=== PATIENT | female | born 1955 | race Caucasian/White ===

== ENCOUNTER → 2017-05-12 | Day surgery (SDC) | payer OTHER ==
[2017-05-07 08:50] LABS: BASOPHILS # (AUTO) 0.1 (0.0-0.1); BASOPHILS % 0.8 % (0.0-1.0); EOSINOPHILS # (AUTO) 0.4 (0.0-0.4); EOSINOPHILS % 4.6 % (0.0-6.0); HEMATOCRIT 38.8 % (34.2-44.1); HEMOGLOBIN 12.6 g/dL (12.0-16.0); LYMPHOCYTES # (AUTO) 2.7 (1.0-3.2); LYMPHOCYTES % 35.1 % (18.0-39.1); MEAN CORPUSCULAR HGB CONC 32.5 g/dL (31-35); MEAN CORPUSCULAR VOLUME 86.2 fL (81-99); MONOCYTES # (AUTO) 0.7 (0.2-0.8); NEUTROPHILS # (AUTO) 3.9 (2.1-6.9); NEUTROPHILS % 50.2 % (38.7-80.0); PLATELET COUNT 247 x10e3/uL (140-360); RED CELL DISTRIBUTION WIDTH 13.1 % (11.7-14.4)
[2017-05-07 08:51] LABS: BILIRUBIN,URINE NEGATIVE (NEGATIVE); CLARITY,URINE CLEAR (CLEAR); COLOR,URINE YELLOW (YELLOW); KETONES,URINE NEGATIVE (NEGATIVE); LEUKOCYTE ESTERASE ,URINE TRACE (NEGATIVE); NITRITE,URINE NEGATIVE (NEGATIVE); PROTEIN,URINE DIPSTICK NEGATIVE (NEGATIVE); URINE UROBILINOGEN 0.2 mg/dL (0.2 - 1)
[2017-05-07 09:07] LABS: ALANINE AMINOTRANSFERASE 25 IU/L (0-55); ALKALINE PHOSPHATASE 72 IU/L (40-150); ANION GAP 9.8 mmol/L (8-16); BLOOD UREA NITROGEN 15 mg/dL (7-26); BUN/CREATININE RATIO 23 (6-25); CALCIUM 9.5 mg/dL (8.4-10.2); CARBON DIOXIDE 31 mmol/L (22-29); CHLORIDE 102 mmol/L (98-107); CREATININE, SERUM 0.65 mg/dL (0.57-1.11); EST GLOMERULAR FILTRATION RATE > 60 ML/MIN (60-); GLUCOSE 157 mg/dL (74-118); POTASSIUM 3.8 mmol/L (3.5-5.1); SODIUM 139 mmol/L (136-145)
[~2017-05-12] MED LIST: ALBUTEROL0.63 MG/3; BUPIVACAINE 0.25%/EPI 30ML SDV INJ ONE; DEXAMETHASONE SOD PHOS INJ 4 MG/ML VIAL ONE; FENTANYL CITRATE/PF 100MCG/2 ML INJ ONE; KETOROLAC TROMETHAMINE 30 MG/ML VIAL ONE; LIDOCAINE HCL 2% LOCAL INJ 5 ML SDV VIAL INJ ONE; MELOXICAM7.5 MG PO; METFORMIN HCL500 MG PO; MIDAZOLAM HCL 2 MG/2 ML VIAL ONE; ONDANSETRON HCL INJ 2 MG/ML VIAL ONE; PROPOFOL IV EMULSION 10 MG/ML 20 ML VIAL ONE; ROCURONIUM BROMIDE 10 MG/ML 5ML VIAL ONE; SEVOFLURANE INHAL SOLN 250 ML PEN BTL ONE; SYMBICORT 16010.2 GM IH
--- OUTSIDE RECORDS SUMMARY | 2017-05-12 07:12 | XMS REPORT | Clinical Summary ---
Author Author [facility] Address Unknown Phone Unavailable Care Team Providers Care Student Specialist Name Role Phone Gretchen Sinha MD PCP Allergies Active Allergy Reactions Severity Noted Date Comments Amoxicillin 06/18/2015 Food Extracts 06/18/2015 sprite Hydrocodone-Acetaminophen 06/18/2015 Current Medications Prescription Sig. Disp. Refills Start End Date Status Date PROAIR HFA 90 INHALE 2 PUFFS BY MOUTH 3 3 05/30/19 Active mcg/actuation inhaler TIMES A DAY 16 glimepiride (AMARYL) 2 MG Take 2 mg by mouth 2 1 05/30/19 Active tablet (two) times a day. 16 metFORMIN (GLUCOPHAGE) TAKE 2 TABLETS BY MOUTH 1 05/30/19 Active 500 MG tablet TWICE A DAY DIRECTED 16 ondansetron ODT DIS ONE T PO BID UTD 0 04/28/19 Active (ZOFRAN-ODT) 4 MG 16 disintegrating tablet qxrjnpf-zxuktvjeirsxy-sem Take 1 tablet by mouth Active feine (EXCEDRIN MIGRAINE) every 6 (six) hours as 250-250-65 mg per tablet needed for headaches. Active Problems Not on file Family History Medical History Relation Name Comments Heart disease Father Diabetes Mother No Known Problems Sister Relation Name Status Comments Father Mother Sister Alive Social History Tobacco Use Types Packs/Day Years Used Date Former Smoker Quit: 02/22/1974 Comments: smoking on and off for 15-20 years Alcohol Use Drinks/Week oz/Week Comments No Sex Assigned at Date Recorded Not on file Last Filed Vital Signs Not on file Plan of Treatment Health Maintenance Due Date Last Done Comments PAP SMEAR 1974 COLONOSCOPY 2003 ZOSTER VACCINE 2013 INFLUENZA VACCINE 09/22/2016 MAMMOGRAM 06/25/2017 06/26/2015 Results Not on fileafter 05/11/2016 Insurance Payer Benefit Subscriber ID Type Phone Address Plan / Group C[employer] CIGNA OPEN xxxxxxxxxxx HMO ACCESS/NET WORK Home: [id number] [place] [id number]
--- OUTSIDE RECORDS SUMMARY | 2017-05-12 07:12 | XMS REPORT | Summary of Care ---
Author Author Yomaira Adkins LVN Organization Unknown Address [facility] Phone Unavailable Care Team Providers Care Delivery Manager Name Role Phone KYAW MOJICA M.D. Unavailable Unavailable Yomaira Adkins LVN Unavailable Unavailable GALINA JAMES [place], KYAW [place] Unavailable Unavailable Unavailable Unavailable Functional Status Name Dates Details Functional status health issues are not documented Status: Name Dates Details Cognitive status health issues are not documented Status: Problems Name Dates Details Asthma (493.90, J45.909) Status: Active Gastritis (535.50, K29.70) Status: Active Hepatitis (573.3, K75.9) Status: Active Chronic sinusitis (473.9, J32.9) Status: Active Sinus pain (478.19, J34.89) Status: Active Migraine headache (346.90, G43.909) Status: Active SANTY positive (795.79, R76.8) Status: Active Elevated blood pressure reading (796.2, R03.0) Status: Active Pain of right upper extremity (729.5, M79.601) Status: Active Claudication of upper extremity (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.9, I73.9) Status: Active Diabetes (250.00, E11.9) Status: Active Benign hypertension (401.1, I10) Status: Active Cervical radiculopathy (723.4, M54.12) Status: Active Colicky RUQ abdominal pain (789.01, R10.11) Status: Active Flu-like symptoms (780.99, R68.89) Status: Active Gallstone (574.20, K80.20) Status: Active Fatty liver (571.8, K76.0) Status: Active Seasonal allergies (477.9, J30.2) Status: Active Medications Name Dates Details Glucophage 1000 MG Oral Tablet TAKE 2 TABLET TWICE DAILY Active Symbicort 160-4.5 MCG/ACT Inhalation Aerosol INHALE 1 PUFFS TWICE DAILY * Refills: 0 Active 6 GM Inhaler ProAir HFA 108 (90 Base) MCG/ACT Inhalation Aerosol Solution INHALE 1 TO 2 PUFFS EVERY 4 TO 6 HOURS NEEDED. * Refills: 0 * Start : 11-Feb-2017 Active 8.5 GM Inhaler OneTouch Delmike Lancets 33G For glucose testing once daily. * Quantity: 1 Refills: 1 GALINA M.D., KYAW * Start : 18-Feb-2017 Active 100 Unit Box OneTouch Verio In Vitro Strip Check sugars once- twice daily at various times including both pre and 2 hrs post meals. * Quantity: 1 Refills: 2 GAILNA M.D., KYAW * Start : 18-Feb-2017 Active 50 Strip Box Lisinopril 10 MG Oral Tablet TAKE 1 TABLET DAILY DIRECTED. * Quantity: 90 Refills: 0 GALINA M.D., KYAW * Start : 02-Apr-2017 Active Meloxicam 15 MG Oral Tablet TAKE 1 TABLET BY MOUTH TWICE DAILY WITH FOOD PRN PAIN. * Quantity: 60 Refills: 0 GALINA M.D., KYAW * Start : 03-May-2017 Active Allergies and Adverse Reactions Name Dates Details Amoxicillin TABS (Allergy) Status: Active Vicodin TABS (Allergy) Status: Active Vitamin D (Allergy) Reaction: Rash Status: Active Past Medical History Name Dates Details History of Anxiety and depression (300.00, F41.8) Status: Resolved History of diabetes mellitus (V12.29, Z86.39) Status: Resolved History of gastroesophageal reflux (GERD) (V12.79, Z87.19) Status: Resolved History of 3 Status: Resolved History of liver cancer (V10.07, Z85.05) Status: Resolved Personal history of asthma (V12.69, Z87.09) Status: Resolved Procedures Procedure Dates Details History of laparoscopy Completed History of low anterior resection Completed History of appendectomy Completed History of colonoscopy Completed Immunization Name Dates Details Immunizations not documented Family History Name Dates Details Family history of asthma (V17.5, Z82.5) Status: Active Family history of diabetes mellitus (V18.0, Z83.3) Status: Active Family history of cardiac disorder (V17.49, Z82.49) Status: Active Name Dates Details Family history of alcoholism (V17.0, Z81.1) Status: Active Family history of rheumatic heart disease (V17.49, Z82.49) Status: Active Family history of diabetes mellitus (V18.0, Z83.3) Status: Active Family history of cardiac disorder (V17.49, Z82.49) Status: Active Social History Name Dates Details Unknown if ever smoked Vital Signs Date Test Result Details [id number] BP Systolic 161 mm[Hg] Status: Comments: Location: LUE; Position: Sitting BP Diastolic 85 mm[Hg] Status: Comments: Location: LUE; Position: Sitting Height 60 in Status: Weight 152.3125 lb Status: Body Mass Index Calculated 29.75 kg/m2 Status: Body Surface Area Calculated 1.66 m2 Status: Temperature 98.7 f Status: Comments: Method: Oral Heart Rate 81 /min Status: [id number] BP Systolic 138 mm[Hg] Status: Comments: Location: LUE; Position: Sitting BP Diastolic 82 mm[Hg] Status: Comments: Location: LUE; Position: Sitting Height 60 in Status: Weight 150.3125 lb Status: Body Mass Index Calculated 29.36 kg/m2 Status: Body Surface Area Calculated 1.65 m2 Status: Temperature 98.1 f Status: Comments: Method: Oral Heart Rate 84 /min Status: Respiration Rate 16 /min Status: Results Date Description Value Details [id number] US Abdomen RUQ [id number] Abdomen RUQ US SEE NOTES Comments: EXAM: US RIGHT UPPER QUADRANTDATE: 7:55 AM CSTINDICATION: - R10.11 Right upper quadrant pain the past one month withnauseaADDITIONAL INFORMATION: None.COMPARISON: None.TECHNIQUE: Multiplanar grayscale and color Doppler ultrasound images of theright upper quadrant of the abdomen. FINDINGS:Liver: Craniocaudal length: 18.3 cm. Enlarged. Echogenicity: Increased. Surface nodularity: None Mass (size and location): None.Portal vein: 12 mm with hepatopetal flow.Bile ducts: Common bile duct diameter: 5 mm. Normal. Intrahepatic ducts: Normal.Gallbladder: Gallstones: Multiple mobile hyperechoic posteriorly acoustically shadowinggallstones. Gallbladder sludge: None. Gallbladder wall: 1.9 mm. Normal. Pericholecystic fluid: None. Sonographic Neville sign: Absent.Pancreas : No abnormalities of the visualized portions of the pancreas are seen.Portions of the pancreatic head and tail are obscured by overlying bowel gas. The pancreatic duct is partially visualized measuring 2.6 mm in maximaldiameter along its course in the main body, within normal limitsRight kidney: Size: 11.4 x 4.3 x 5.3 cm. Normal. Hydronephrosis: None Echogenicity: Normal. Mass/Stone/Cyst (size and location): None.Abdominal aorta and IVC: Visualized portions are normal.Ascites: NonePleural effusion: None.IMPRESSION:1. Cholelithiasis with no sonographic evidence of acute cholecystitis.2. Nonspecific hepatomegaly and increased liver echogenicity, findings mostcompatible with diffuse fatty infiltration (steatosis) of the liver.--Read by: Jaren Lira MDDictated Date/time: 04/14/17 08: 27Electronically Signed by: Jaren Lira MD 8:30FINAL REPORT [id number] Tobacco Use Screening Completed DONE Plan of Care Name Dates Details Planned Observations Planned Goals not documented Instructions Name Dates Details Instructions not documented Encounters Appointment; KYAW MOJICA M.D. Encounter Diagnosis: Problem not documented On: 19-Jan-2017 9:30 Appointment; KYAW MOJICA M.D. Encounter Diagnosis: Problem not documented On: 28-Jan-2017 10:45 Appointment; YUNG THOMAS M.D. Encounter Diagnosis: Problem not documented On: 11-Feb-2017 8:00 Appointment; YENI MARIO RD Encounter Diagnosis: Problem not documented On: 18-Feb-2017 8:00 Appointment; KYAW MOJICA M.D. Encounter Diagnosis: Problem not documented On: 04-Mar-2017 9:45 Appointment; KYAW MOJICA M.D. Encounter Diagnosis: Problem not documented On: 05-Apr-2017 10:00 Appointment; LORI BRAGG D.O. Encounter Diagnosis: Problem not documented On: 23-Apr-2017 10:00
--- NOTE | 2017-05-12 14:09 | Operative Report ---
DATE OF PROCEDURE: May 12, 2017 PREOPERATIVE DIAGNOSIS: Cholecystitis and cholelithiasis. POSTOPERATIVE DIAGNOSIS: Cholecystitis and cholelithiasis. OPERATION PERFORMED: Laparoscopic cholecystectomy. ASSISTANTS: Dr. Vel Burnett and JAKE Thompson. ANESTHESIA: General. COMPLICATIONS: None. ESTIMATED BLOOD LOSS: Minimal. DESCRIPTION OF PROCEDURE: With the patient lying in bed in the supine position, under good general endotracheal anesthesia, the abdomen was prepped with Betadine solution and draped in the usual manner. Veress needle was introduced into the umbilicus, and pneumoperitoneum was established without any difficulty. An 11-mm trocar was placed into the umbilicus, and a 10-mm video laparoscope was placed into the intraabdominal cavity. Under direct vision, three 5-mm trocars were placed in the right subcostal region. Video laparoscopy at this point revealed a gallbladder that had adhesions to the lower half. Otherwise, the rest of the abdominal exploration was within normal limits. The peritoneum overlying the neck of the gallbladder was then opened, and all of the adhesions were taken down without any difficulty. The cystic duct was then identified and followed to its junction with the common duct. The cystic duct was then circumferentially dissected away from the common duct, doubly clipped and divided. The cystic artery was similarly doubly clipped and divided. The gallbladder was then slowly and carefully taken off the liver bed using the cautery. Perfect hemostasis was ascertained. The gallbladder was grasped through the umbilical port and removed without any difficulty. Video laparoscopy was then performed, and the liver bed was found to perfectly dry. All of the excess fluid was aspirated. The pneumoperitoneum was evacuated, and all the trocars were removed under direct vision. The midline fascia at the umbilicus was then closed with a ynkeol-lu-hrwho of #0 Vicryl. All layers were infiltrated on the way out with solution of 1/4 percent Marcaine. Subcutaneous tissue was approximated with 3-0 Vicryl, and the skin was closed with subcuticular 5-0 Vicryl. Benzoin, Steri-Strips and Band-Aids were applied. The sponge, lap and needle count was correct. The patient tolerated the procedure well and returned to the recovery room in stable condition. Job#: [id number]
== END | disposition home or self-care (01) ==
LOC: OR 07:10
PROVIDERS: ATTEND Surgery
DX: K80.10 Calculus of gallbladder with chronic cholecystitis without obstruction (principal); K82.8 Other specified diseases of gallbladder; E11.9 Type 2 diabetes mellitus without complications; J45.909 Unspecified asthma, uncomplicated; F32.9 Major depressive disorder, single episode, unspecified; Z01.810 Encounter for preprocedural cardiovascular examination; Z01.812 Encounter for preprocedural laboratory examination
CPT/HCPCS: 36415 ×2; 47562; 80053; 81003; 82948; 85025; 88304; 93005; C1766; J1100; J1885; J2001; J2250; J2405

== ENCOUNTER 2018-11-10 12:41 | Emergency (ER) | payer MEDICARE, OTHER ==
[~2018-11-10] VITALS: Ht 152.4 cm; Wt 66.7 kg
[~2018-11-10 12:41] MED LIST changes: -BUPIVACAINE 0.25%/EPI 30ML SDV INJ ONE; -DEXAMETHASONE SOD PHOS INJ 4 MG/ML VIAL ONE; -FENTANYL CITRATE/PF 100MCG/2 ML INJ ONE; -KETOROLAC TROMETHAMINE 30 MG/ML VIAL ONE; -LIDOCAINE HCL 2% LOCAL INJ 5 ML SDV VIAL INJ ONE; -MIDAZOLAM HCL 2 MG/2 ML VIAL ONE; -ONDANSETRON HCL INJ 2 MG/ML VIAL ONE; -PROPOFOL IV EMULSION 10 MG/ML 20 ML VIAL ONE; -ROCURONIUM BROMIDE 10 MG/ML 5ML VIAL ONE; -SEVOFLURANE INHAL SOLN 250 ML PEN BTL ONE
--- OUTSIDE RECORDS SUMMARY | 2018-11-10 12:45 | XMS REPORT ---
[facility] Address Unknown Phone Unavailable Care Team Providers Care Specialty Cook Name Role Phone Unavailable Unavailable Payers Payer Name Policy Type Policy Number Effective Date Expiration Date Problems This patient has no known problems. Allergies, Adverse Reactions, Alerts Allergy Name Allergy Type Status Severity Reaction(s) Onset Date Inactive Date Treating Clinician Comments SPRITE DA Active SV 2018-10-09 00:00:00 Sulfa (Sulfonamide Antibiotics) DA Active U 2011-06-01 00:00:00 amoxicillin DA Active U 2011-06-01 00:00:00 Medications This patient has no known medications. Results Test Description Test Time Test Comments Text Results Atomic Results Result Comments - XR CHEST 2 V 2018-11-08 19:08:00 Name: KATIE PARK [facility] : 1955 Age/S:63 /F [address] [facility] Unit#:[id number] Loc: [place] [address] Phys: Dena Molina Dis Date: PHONE #: [phone] Status: REG ER FAX #: [phone] Exam Date: 11/08/2018 Reason: Right Arm Pain EXAMS: CPT CODE: [id number] XR CHEST 2 V [id number] REASON FOR EXAM: Right Arm Pain Exam Order Date: 11/08/2018 6:44 PM Ordering MTyroneDTyrone: IKER Armstrong PROCEDURE: - XR CHEST 2 V COMPARISON: 10/09/2018 FINDINGS: PA and lateral views of the chest show clear lungs without evidence of consolidation. No evidence of effusion. The heart size is within normal limits. Pulmonary vasculatures are unremarkable. The osseous structures are grossly intact. IMPRESSION: No active disease. at 1908 Reported and signed by: Dimitris Patterson M.D. CC: Dena Molina; Rodney Seth Technologist: Yasmine Messer Trnromariorpt Data: 11/08/2018 (1907) Michelle.VTL Orig Print D/T: S: 11/08/2018 (1912) PAGE 1 Signed Report - XR WRIST 3 + V RT 2018-11-08 19:08:00 Name: KATIE PARK [facility] : 1955 Age/S:63 /F [address] [facility] Unit#:[id number] Loc: [place] [address] Phys: Dena Molina Dis Date: PHONE #: [phone] Status: REG ER FAX #: [phone] Exam Date: 11/08/2018 Reason: Right Wrist Pain EXAMS: CPT CODE: [id number] XR WRIST 3 + V RT [id number] REASON FOR EXAM: Right Wrist Pain EXAM ORDER DATE: 11/08/2018 6:44 PM Ordering Sunny: IKER Armstrong PROCEDURE: - XR WRIST 3 + V RT FINDINGS: 3 views of the right wrist were obtained. The osseous structures are unremarkable in size and shape. The joint spaces are maintained. No evidence of acute fracture. The radiocarpal joint space is intact IMPRESSION: Chronic ulnar styloid process fracture. No acute findings at 1908 Reported and signed by: Dimitris Patterson M.D. CC: Dena Molina; Rodney Seth Technologist: Yasmine Messer Trnromariorpt Data: 11/08/2018 (1907) Michelle.VTL Orig Print D/T: S: 11/08/2018 (2020) PAGE 1 Signed Report - XR HAND 3 + V RT 2018-11-08 19:07:00 Name: KATIE PARK [facility] : 1955 Age/S:63 /F [address] [facility] Unit#:[id number] Loc: [place] [address] Phys: Dena Molina Dis Date: PHONE #: [phone] Status: REG ER FAX #: [phone] Exam Date: 11/08/2018 Reason: Right Hand Pain EXAMS: CPT CODE: [id number] XR HAND 3 + V RT [id number] REASON FOR EXAM: Right Hand Pain EXAM ORDER DATE: 11/08/2018 6:44 PM Ordering MHuy: IKER Armstrong PROCEDURE: - XR HAND 3 + V RT FINDINGS: 3 views of the right hand were obtained. The osseous structures are unremarkable in size and shape without from small osteophyte at the 3rd DIP. The joint spaces are maintained. No evidence of fracture. The phalanges are intact. The carpal and metacarpal bones are unremarkable. There is normal alignment of the radiocarpal joint space IMPRESSION: Degenerative changes without acute osseous abnormality at 1907 Reported and signed by: Dimitris Patterson M.D. CC: Dena Molina; Rodney Seth Technologist: Yasmine Messer Trnscrpt Data: 11/08/2018 (1906) LangVTL Orig Print D/T: S: 11/08/2018 (2013) PAGE 1 Signed Report - XR SHOULDER 2 + V RT 2018-11-08 19:06:00 Name: KATIE PARK [facility] : 1955 Age/S:63 /F [address] [facility] Unit#:[id number] Loc: [place] [address] Phys: Dena Molina Dis Date: PHONE #: [phone] Status: REG ER FAX #: [phone] Exam Date: 11/08/2018 Reason: Right Arm Pain EXAMS: CPT CODE: [id number] XR SHOULDER 2 + V RT [id number] REASON FOR EXAM: Right Arm Pain EXAM ORDER DATE: 11/08/2018 6:44 PM Ordering Sunny: IKER Armstrong PROCEDURE: - XR SHOULDER 2 + V RT FINDINGS: 3 views of the right shoulder were obtained. The osseous structures are unremarkable in size and shape. The joint spaces are maintained. There is normal alignment of the humeral head. No evidence of fracture. The acromial clavicular joint is intact IMPRESSION : Unremarkable right shoulder at 1906 Reported and signed by: Dimitris Patterson M.D. CC: Dena Molina; Rodney Seth Technologist: Yasmine Messer Trnscrpt Data: 11/08/2018 (1905) [email or web address] Orig Print D/T: S: 11/08/2018 (1911) PAGE 1 Signed Report - XR FOREARM 2 VIEWS RT 2018-11-08 19:06:00 Name: KATIE PARK [facility] : 1955 Age/S:63 /F [address] [facility] Unit#:[id number] Loc: [place] [address] Phys: Dena Molina Dis Date: PHONE #: [phone] Status: REG ER FAX #: [phone] Exam Date: 11/08/2018 Reason: Right Arm Pain EXAMS: CPT CODE: [id number] XR [place] [address] [place] [id number] REASON FOR EXAM: Right Arm Pain EXAM ORDER DATE: 11/08/2018 6:44 PM Ordering Sunny: IKER Armstrong PROCEDURE: - XR FOREARM 2 VIEWS RT FINDINGS: 2 views of the right forearm were obtained. The osseous structures are unremarkable in size and shape. The joint spaces are maintained. No evidence of fracture. IMPRESSION: Unremarkable right radius and ulna Electronically Signed by Sunny Patterson on 11/08 at 1906 Reported and signed by: Dimitris Patterson M.D. CC: Dena Molina; Rodney Seth Technologist: Yasmine Messer Trnromariorpt Data: 11/08/2018 (1905) Leni Orig Print D/T: S: 11/08/2018 (2020) PAGE 1 Signed Report - XR ELBOW 3 + V RT 2018-11-08 19:05:00 Name: KATIE PARK [facility] : 1955 Age/S:63 /F [address] [facility] Unit#:[id number] Loc: [place] [address] Phys: Dena Molina Dis Date: PHONE #: [phone] Status: REG ER FAX #: [phone] Exam Date: 11/08/2018 Reason: Right Arm Pain EXAMS: CPT CODE: [id number] XR ELBOW 3 + V RT [id number] REASON FOR EXAM: Right Arm Pain EXAM ORDER DATE: 11/08/2018 6:44 PM Ordering Sunny: IKER Armstrong PROCEDURE: - XR ELBOW 3 + V RT FINDINGS: 3 views of the right elbow were obtained. The osseous structures are unremarkable in size and shape. The joint spaces are maintained. No evidence of fracture. No evidence of joint effusion IMPRESSION: Unremarkable right elbow at 1905 Reported and signed by: Dimitris Patterson M.D. CC: Dena Molina; Rodney Seth Technologist: Yasmine Messer Trnromariot Data: 11/08/2018 (1904) Leni Orig Print D/T: S: 11/08/2018 (2017) PAGE 1 Signed Report URINALYSIS COMPLETE 2018-10-09 13:34:00 UA COLOR (test code=COLU) LIGHT YELLOW YELLOW UA APPEARANCE (test code=APPU) CLEAR CLEAR UA GLUCOSE DIPSTICK (test code=DGLUU) norm mg/dL NEGATIVE UA BILIRUBIN DIPSTICK (test code=BILU) NEGATIVE mg/dL NEGATIVE UA KETONE DIPSTICK (test code=KETU) neg mg/dL NEGATIVE UA SPECIFIC GRAVITY (test code=SGU) 1.005 1.001-1.035 UA BLOOD DIPSTICK (test code=ARMANDO) neg Cole/uL NEGATIVE UA PH DIPSTICK (test code=AMANDA) 7.0 5.0-8.0 UA PROTEIN DIPSTICK (test code=PROU) neg mg/dL Neg-15 UA UROBILINIOGEN DIPSTICK (test code=URO) norm mg/dL 0.0-0.2 UA NITRITE DIPSTICK (test code=LISA) NEGATIVE NEGATIVE UA LEUKOCYTE ESTERASE DIPSTICK (test code=LEUU) 25 Lamont/uL (Trace) uL NEGATIVE UA WBC (test code=WBCU) 2-3 per HPF 0-5 UA RBC (test code=RBCU) 0-2 per HPF 0-5 UA EPITHELIAL CELLS (test code=EPIU) FEW per HPF Few UA BACTERIA (test code=BACU) TRACE per HPF NONE Urine Source? Clean CatchURINALYSIS [id number] 13:26:00* Test Item Value Reference Range Comments UA COLOR (test code=COLU) LIGHT YELLOW YELLOW UA APPEARANCE (test code=APPU) CLEAR UA GLUCOSE DIPSTICK (test code=DGLUU) norm mg/dL NEGATIVE UA BILIRUBIN DIPSTICK (test code=BILU) NEGATIVE mg/dL NEGATIVE UA KETONE DIPSTICK (test code=KETU) neg mg/dL NEGATIVE UA SPECIFIC GRAVITY (test code=SGU) 1.005 1.001-1.035 UA BLOOD DIPSTICK (test code=ARMANDO) neg Cole/uL NEGATIVE UA PH DIPSTICK (test code=AMANDA) 7.0 5.0-8.0 UA PROTEIN DIPSTICK (test code=PROU) neg mg/dL Neg-15 UA UROBILINIOGEN DIPSTICK (test code=URO) norm mg/dL 0.0-0.2 UA NITRITE DIPSTICK (test code=LISA) NEGATIVE NEGATIVE UA LEUKOCYTE ESTERASE DIPSTICK (test code=LEUU) 25 Lamont/uL (Trace) uL NEGATIVE UA WBC (test code=WBCU) per HPF 0-5 UA RBC (test code=RBCU) per HPF 0-5 UA EPITHELIAL CELLS (test code=EPIU) per HPF Few UA BACTERIA (test code=BACU) per HPF NONE Urine Source? Clean CatchBASIC METABOLIC [id number] 13:02:00* Test Item Value Reference Range Comments SODIUM (test code=NA) 136 mmol/L 135-148 POTASSIUM (test code=K) 4.0 mmol/L 3.5-5.1 CHLORIDE (test code=CL) 99 mmol/L 101-109 CARBON DIOXIDE (test code=CO2) 26.8 mmol/L 21-32 ANION GAP (test code=GAP) 14 mmol/L 10-20 GLUCOSE (test code=GLU) 157 mg/dL 74-106 BLOOD UREA NITROGEN (test code=BUN) 15 mg/dL 3-21 GLOMERULAR FILTRATION RATE (test code=GFR) > 60 mL/min >=60 Estimated GFR by using Modified MDRD formula.Chronic kidney disease is defined as either kidney damageor GFR <60 mL/min/1.73 m2 for >3 months. CREATININE (test code=CREAT) 0.63 mg/dL 0.55-1.3 BUN/CREATININE RATIO (test code=BUN/CREA) 23.8 10-20 CALCIUM (test code=CA) 9.3 mg/dL 8.4-10.2 HEPATIC FUNCTION [id number] 13:02:00* Test Item Value Reference Range Comments TOTAL PROTEIN (test code=PROT) 8.4 gram/dL 6.4-8.2 ALBUMIN (test code=ALB) 4.1 g/dL 3.4-5.0 GLOBULIN (test code=GLOB) 4.3 g/dL 2.7-4.2 ALBUMIN/GLOBULIN RATIO (test code=A/G) 1.0 0.75-1.50 BILIRUBIN TOTAL (test code=BILT) 1.00 mg/dL 0.2-1.2 BILIRUBIN DIRECT (test code=BILD) 0.20 mg/dL 0.0-0.20 SGOT/AST (test code=AST) 21 IUnit/L 15-37 SGPT/ALT (test code=ALT) 26 U/L 10-69 ALKALINE PHOSPHATASE TOTAL (test code=ALKP) 83 IUnit/L 45-117 Note change in reference range due to change in reagent. [id number] 13:02:00* Test Item Value Reference Range Comments LIPASE (test code=LIP) 127 Unit/L 144-286 [id number] 13:02:00* Test Item Value Reference Range Comments TROPONIN-I (test code=TROPI) <0.015 ng/mL 0-0.045 BASIC METABOLIC [id number] 13:01:00* Test Item Value Reference Range Comments SODIUM (test code=NA) mmol/L 135-148 POTASSIUM (test code=K) mmol/L 3.5-5.1 CHLORIDE (test code=CL) mmol/L 101-109 CARBON DIOXIDE (test code=CO2) 26.8 mmol/L 21-32 ANION GAP (test code=GAP) mmol/L 10-20 GLUCOSE (test code=GLU) mg/dL 74-106 BLOOD UREA NITROGEN (test code=BUN) 15 mg/dL 3-21 GLOMERULAR FILTRATION RATE (test code=GFR) > 60 mL/min >=60 Estimated GFR by using Modified MDRD formula.Chronic kidney disease is defined as either kidney damageor GFR <60 mL/min/1.73 m2 for >3 months. CREATININE (test code=CREAT) 0.63 mg/dL 0.55-1.3 BUN/CREATININE RATIO (test code=BUN/CREA) 23.8 10-20 CALCIUM (test code=CA) 9.3 mg/dL 8.4-10.2 HEPATIC FUNCTION [id number] 13:01:00* Test Item Value Reference Range Comments TOTAL PROTEIN (test code=PROT) 8.4 gram/dL 6.4-8.2 ALBUMIN (test code=ALB) 4.1 g/dL 3.4-5.0 GLOBULIN (test code=GLOB) 4.3 g/dL 2.7-4.2 ALBUMIN/GLOBULIN RATIO (test code=A/G) 1.0 0.75-1.50 BILIRUBIN TOTAL (test code=BILT) 1.00 mg/dL 0.2-1.2 BILIRUBIN DIRECT (test code=BILD) 0.20 mg/dL 0.0-0.20 SGOT/AST (test code=AST) 21 IUnit/L 15-37 SGPT/ALT (test code=ALT) 26 U/L 10-69 ALKALINE PHOSPHATASE TOTAL (test code=ALKP) 83 IUnit/L 45-117 Note change in reference range due to change in reagent. [id number] 13:01:00* Test Item Value Reference Range Comments LIPASE (test code=LIP) 127 Unit/L 144-286 [id number] 13:01:00* Test Item Value Reference Range Comments TROPONIN-I (test code=TROPI) <0.015 ng/mL 0-0.045 BASIC METABOLIC [id number] 12:57:00* Test Item Value Reference Range Comments SODIUM (test code=NA) mmol/L 135-148 POTASSIUM (test code=K) mmol/L 3.5-5.1 CHLORIDE (test code=CL) mmol/L 101-109 CARBON DIOXIDE (test code=CO2) mmol/L 21-32 ANION GAP (test code=GAP) mmol/L 10-20 GLUCOSE (test code=GLU) mg/dL 74-106 BLOOD UREA NITROGEN (test code=BUN) 15 mg/dL 3-21 GLOMERULAR FILTRATION RATE (test code=GFR) > 60 mL/min >=60 Estimated GFR by using Modified MDRD formula.Chronic kidney disease is defined as either kidney damageor GFR <60 mL/min/1.73 m2 for >3 months. CREATININE (test code=CREAT) 0.63 mg/dL 0.55-1.3 BUN/CREATININE RATIO (test code=BUN/CREA) 23.8 10-20 CALCIUM (test code=CA) 9.3 mg/dL 8.4-10.2 HEPATIC FUNCTION [id number] 12:57:00* Test Item Value Reference Range Comments TOTAL PROTEIN (test code=PROT) 8.4 gram/dL 6.4-8.2 ALBUMIN (test code=ALB) 4.1 g/dL 3.4-5.0 GLOBULIN (test code=GLOB) 4.3 g/dL 2.7-4.2 ALBUMIN/GLOBULIN RATIO (test code=A/G) 1.0 0.75-1.50 BILIRUBIN TOTAL (test code=BILT) 1.00 mg/dL 0.2-1.2 BILIRUBIN DIRECT (test code=BILD) 0.20 mg/dL 0.0-0.20 SGOT/AST (test code=AST) 21 IUnit/L 15-37 SGPT/ALT (test code=ALT) 26 U/L 10-69 ALKALINE PHOSPHATASE TOTAL (test code=ALKP) 83 IUnit/L 45-117 Note change in reference range due to change in reagent. [id number] 12:57:00* Test Item Value Reference Range Comments LIPASE (test code=LIP) 127 Unit/L 144-286 [id number] 12:57:00* Test Item Value Reference Range Comments TROPONIN-I (test code=TROPI) <0.015 ng/mL 0-0.045 [id number] 12:54:00* Test Item Value Reference Range Comments GLYCOSYLATED HEMOGLOBIN (HA1C) (test code=GLYHGB) 6.9 % 4.5-6.2 ESTIMATED AVERAGE GLUCOSE (test code=EAG) 151 MG/DL B-TYPE NATRIURETIC [id number] 12:50:00* Test Item Value Reference Range Comments B-TYPE NATRIURETIC PEPTIDE (test code=BNP) 21.6 pg/mL 0-100 - XR CHEST 1 [id number] 12:41:00 Name: KATIE PARK [facility] : 1955 Age/S:63 /F [address] [facility] Unit#:[id number] Loc: [place] [address] Phys: Geronimo Villagomez MD Dis Date: PHONE #: [phone] Status: PRE ER FAX #: [phone] Exam Date: 10/09/2018 Reason: Abdominal Pain EXAMS: CPT CODE: [id number] XR CHEST 1 V 71957 HISTORY: Abdominal Pain TECHNIQUE: AP chest x-ray COMPARISON: 05/24/10 FINDINGS: No airspace consolidation or pleural effusion. Normal heart size. Atherosclerotic vascular calcification of the thoracic aorta. Thoracic spondylosis. IMPRESSION: No radiographic evidence of acute cardiopulmonary process. at 1241 Reported and signed by: Jesusita Wilcox D.O. CC: Geronimo Villagomez MD Technologist: Yasmine Messer Trnscrpt Data: 10/09/2018 (6970) [email or web address] Orig Print D/T: S: 10/09/2018 (2496) PAGE 1 Signed Report CBC W/O [id number] 12:35:00* Test Item Value Reference Range Comments WHITE BLOOD CELL (test code=WBC) 9.0 K/mm3 4.5-12.5 RED BLOOD CELL (test code=RBC) 4.42 mill/mm3 3.7-5.2 HEMOGLOBIN (test code=HGB) 12.6 gram/dL 11.5-15.5 HEMATOCRIT (test code=HCT) 38.8 % 36.0-46.0 MEAN CELL VOLUME (test code=MCV) 87.8 fL 80-98 MEAN CELL HGB (test code=MCH) 28.5 picogram 27.0-33.0 MEAN CELL HGB CONCETRATION (test code=MCHC) 32.5 gram/dL 33.0-36.0 RED CELL DISTRIBUTION WIDTH (test code=RDW) 12.6 % 11.6-16.2 RED CELL DISTRIBUTION WIDTH SD (test code=RDW-SD) 40.9 fL 37.0-51.0 PLATELET COUNT (test code=PLT) 244 K/mm3 150-450 MEAN PLATELET VOLUME (test code=MPV) 10.0 fL 6.7-11.0
--- OUTSIDE RECORDS SUMMARY | 2018-11-10 12:45 | XMS REPORT | Summary of Care ---
Author Author YU ADAME Organization Unknown Address Unknown Phone Unavailable Care Team Providers Care Knuckle Strap Sewer Name Role Phone KYAW MOJICA M.D. Unavailable YU ADAME Unavailable Unavailable GALINA JAMES MS, KYAW [place] Unavailable Unavailable Unavailable Unavailable Functional Status Name Dates Details Functional status health issues are not documented Status: Name Dates Details Cognitive status health issues are not documented Status: Problems Name Dates Details Gastritis (535.50, K29.70) Status: Active Hepatitis (573.3, K75.9) Status: Active Chronic sinusitis (473.9, J32.9) Status: Active Sinus pain (478.19, J34.89) Status: Active Migraine headache (346.90, G43.909) Status: Active SANTY positive (795.79, R76.8) Status: Active Elevated blood pressure reading (796.2, R03.0) Status: Active Pain of right upper extremity (729.5, M79.601) Status: Active Claudication of upper extremity (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.9, I73.9) Status: Active Cervical radiculopathy (723.4, M54.12) Status: Active Colicky RUQ abdominal pain (789.01, R10.11) Status: Active Gallstone (574.20, K80.20) Status: Active Fatty liver (571.8, K76.0) Status: Active Seasonal allergies (477.9, J30.2) Status: Active Limb pain (729.5, M79.609) Status: Active Asthma (493.90, J45.909) Status: Active Abnormal smell (781.1, R43.1) Status: Active Benign hypertension (401.1, I10) Status: Active Allergic rhinitis (477.9, J30.9) Status: Active Dizziness (780.4, R42) Status: Active Noncompliance with medications (V15.81, Z91.14) Status: Active Diabetes (250.00, E11.9) Status: Active Medications Name Dates Details Glucophage 1000 MG Oral Tablet TAKE 2 TABLET TWICE DAILY R.N. Active Symbicort 160-4.5 MCG/ACT Inhalation Aerosol INHALE 1 PUFFS TWICE DAILY * Refills: 0 R.N. Active 6 GM Inhaler ProAir HFA 108 (90 Base) MCG/ACT Inhalation Aerosol Solution INHALE 1 TO 2 PUFFS EVERY 4 TO 6 HOURS NEEDED. * Refills: 0 R.N. * Start : 11-Feb-2017 Active 8.5 GM Inhaler OneTouch Delica Lancets 33G For glucose testing once daily. * Quantity: 1 Refills: 1 GALINA Orellana.KYAW Adkins * Start : 18-Feb-2017 Active 100 Unit Box OneTouch Verio In Vitro Strip Check sugars once- twice daily at various times including both pre and 2 hrs pos t meals. * Quantity: 1 Refills: 2 GALINA M.Loly., KYAW * Start : 18-Feb-2017 Active 50 Strip Box Meloxicam 15 MG Oral Tablet TAKE 1 TABLET BY MOUTH TWICE DAILY WITH FOOD PRN PAIN. * Quantity: 60 Refills: 0 GALINA M.D., KYAW * Start : 01-Jun-2017 Active MetFORMIN HCl - 500 MG Oral Tablet TAKE 2 TABLET TWICE DAILY * Refills: 0 R.N. Active Singulair 10 MG Oral Tablet TAKE 1 TABLET AT BEDTIME. * Quantity: 30 Refills: 5 R.N. Active Loratadine 10 MG Oral Capsule 1 PO QD x 2 weeks, then PRN allergies * Quantity: 30 Refills: 2 FELTON Yamini.YU Phillips * Start : 24-Aug-2017 Active Fluticasone Propionate 50 MCG/ACT Nasal Suspension USE 2 SPRAYS IN EACH NOSTRIL ONCE DAILY * Quantity: 1 Refills: 5 FELTON P.A.YU * Start : 24-Aug-2017 Active 9.9 ML Bottle Allergies and Adverse Reactions Name Dates Details Amoxicillin TABS (Allergy) Status: Active Vicodin TABS (Allergy) Status: Active Vitamin D (Allergy) Reaction: Rash Status: Active Past Medical History Name Dates Details History of Anxiety and depression (300.00, F41.9) Status: Resolved History of diabetes mellitus (V12.29, Z86.39) Status: Resolved History of gastroesophageal reflux (GERD) (V12.79, Z87.19) Status: Resolved History of 3 Status: Resolved History of liver cancer (V10.07, Z85.05) Status: Resolved Personal history of asthma (V12.69, Z87.09) Status: Resolved Procedures Procedure Dates Details [U] XRAY KNEE 4 OR MORE VWS LEFT 62026 Date: 23-Aug-2017 History of Laparoscopy Completed History of Low anterior resection Completed History of Appendectomy Completed History of Colonoscopy Completed Immunization Name Dates Details Immunizations not [...] smoked Vital Signs Date Test Result Details [id number] Physical Findings 7 Status: Comments: PHQ-9 Adult Depression Screening [id number] BP Systolic 147 mm[Hg] Status: Comments: Location: LLE; Position: Sitting BP Diastolic 74 mm[Hg] Status: Comments: Location: LLE; Position: Sitting Heart Rate 82 /min Status: [id number]:27 BP Systolic 143 mm[Hg] Status: Comments: Location: LUE; Position: Sitting BP Diastolic 75 mm[Hg] Status: Comments: Location: LUE; Position: Sitting Heart Rate 77 /min Status: Height 60 in Status: Weight 150 lb Status: Body Mass Index Calculated 29.3 kg/m2 Status: Body Surface Area Calculated 1.65 m2 Status: Temperature 97.3 f Status: Comments: Method: Temporal Respiration Rate 16 /min Status: Results Date Description Value Details [id number] [[facility]] LIPID PANEL CHOLESTEROL, TOTAL 228 mg/dl (Above high threshold) Range: <200 HDL CHOLESTEROL 55 mg/dl (Normal) Range: >50 TRIGLYCERIDES 221 mg/dl (Above high threshold) Range: <150 LDL-CHOLESTEROL 137 {MG/DL__CAL} (Above high threshold) Comments: Reference range: <100 Desirable range <100 mg/dL for primary prevention; <70 mg/dL for patients with CHD or diabetic patients with > or=2 CHD risk factors. LDL-C is now calculated using the Rebel-Burns calculation, which is a validated novel method providing better accuracy than the Friedewald equation in the estimation of LDL-C. Rebel PEACOCK et al. DOROTHY. 2013;310(19): 1531-4265 (http:/ [email or web address].GreenBytes/faq/OIE078) CHOL/HDLC RATIO 4.1 {CALC} (Normal) Range: <5.0 NON HDL CHOLESTEROL 173 {MG/DL__CAL} (Above high threshold) Range: <130 Comments: For patients with diabetes plus 1 major ASCVD risk factor, treating to a non-HDL-C goal of <100 mg/dL (LDL-C of <70 mg/dL) is considered a therapeutic option. [id number] [[facility]] CMP W/EGFR GLUCOSE 368 mg/dl (Above high threshold) Range: 65-99 Comments: Fasting reference interval For someone without known diabetes, a glucosevalue >125 mg/dL indicates that they may havediabetes and this should be confirmed with afollow-up test. UREA NITROGEN (BUN) 15 mg/dl (Normal) Range: 7-25 CREATININE 0.53 mg/dl (Normal) Range: 0.50-0.99 Comments: For patients >49 years of age, the reference limitfor Creatinine is approximately 13% higher for peopleidentified as -German. eGFR NON- 100 {ML/MIN/1.7} (Normal) Range: > OR=60 eGFR 116 {ML/MIN/1.7} (Normal) Range: > OR=60 BUN/CREATININE RATIO NOT APPLICABLE {CALC} Range: 6-22 SODIUM 134 mmol/L (Below low threshold) Range: 135-146 POTASSIUM 4.5 mmol/L (Normal) Range: 3.5-5.3 CHLORIDE 97 mmol/L (Below low threshold) Range: 98-110 CARBON DIOXIDE 28 mmol/L (Normal) Range: 20-31 CALCIUM 9.5 mg/dl (Normal) Range: 8.6-10.4 PROTEIN, TOTAL 7.0 g/dl (Normal) Range: 6.1-8.1 ALBUMIN 4.2 g/dl (Normal) Range: 3.6-5.1 GLOBULIN 2.8 {G/DL__CALC} (Normal) Range: 1.9-3.7 ALBUMIN/GLOBULIN RATIO 1.5 {CALC} (Normal) Range: 1.0-2.5 BILIRUBIN, TOTAL 0.6 mg/dl (Normal) Range: 0.2-1.2 ALKALINE PHSPHATASE 118 u/l (Normal) Range: 33-130 AST 16 u/l (Normal) Range: 10-35 ALT 17 u/l (Normal) Range: 6-29 [id number] [[facility]] CBC (INCLUDES DIFF/PLT) WHITE BLOOD CELL COUNT 7.5 {Thousand/u} (Normal) Range: 3.8-10.8 RED BLOOD CELL COUNT 4.19 {Million/uL} (Normal) Range: 3.80-5.10 HEMOGLOBIN 12.0 g/dl (Normal) Range: 11.7-15.5 HEMATOCRIT 36.5 % (Normal) Range: 35.0-45.0 MCV 87.1 fL (Normal) Range: 80.0-100.0 MCH 28.6 pg (Normal) Range: 27.0-33.0 MCHC 32.9 g/dl (Normal) Range: 32.0-36.0 RDW 13.1 % (Normal) Range: 11.0-15.0 PLATELET COUNT 234 {Thousand/u} (Normal) Range: 140-400 MPV 10.9 fL (Normal) Range: 7.5-12.5 ABSOLUTE NEUTROPHILS 4343 {cells/uL} (Normal) Range: 7104-0580 ABSOLUTE LYMPHOCYTES 2423 {cells/uL} (Normal) Range: 850-3900 ABSOLUTE MONOCYTES 578 {cells/uL} (Normal) Range: 200-950 ABSOLUTE EOSINOPHILS 120 {cells/uL} (Normal) Range: 15-500 ABSOLUTE BASOPHILS 38 {cells/uL} (Normal) Range: 0-200 NEUTROPHILS 57.9 % (Normal) LYMPHOCYTES 32.3 % (Normal) MONOCYTES 7.7 % (Normal) EOSINOPHILS 1.6 % (Normal) BASOPHILS 0.5 % (Normal) [id number] [[facility]] HEMOGLOBIN A1c Comments: REPORT COMMENT:FASTING:YES HEMOGLOBIN A1c 7.6 {%_of_total} (Above high threshold) Range: <5.7 Comments: For someone without known diabetes, a hemoglobin C3rkyovn of 6.5% or greater indicates that they may have diabetes and this should be confirmed with a follow-up test. For someone with known diabetes, a value <7% indicates that their diabetes is well controlled and a value greater than or equal to 7% indicates suboptimal control. A1c targets should be individualized based on duration of diabetes, age, comorbid conditions, and other considerations. Currently, no consensus exists regarding use ofhemoglobin A1c for diagnosis of diabetes for children. Plan of Care Name Dates Details Planned Observations Planned Goals not documented Planned Encounters Appointment; GÓMEZ SAMS M.D. On: 26-Aug-2017 13:30 Appointment; KYAW MOJICA M.D. On: 24-Sep-2017 12:30 Interventions Provided Discussion/Summary* Glucose levels are above goal (A1C=7.6%); follow diabetic diet, and increase aerobic exercise; recheck A1C in 3 months. Cholesterol is above goal; follow low cholesterol diet, and cholesterol medication options can be discussed at follow up visit. CBC, kidney function, and liver function tests are normal. Instructions Name Dates Details Instructions not documented [...] Diagnosis: Problem not documented On: 23-Apr-2017 10:00 Appointment; YU YA P.A. Encounter Diagnosis: Problem not documented On: 24-Aug-2017 12:00
--- OUTSIDE RECORDS SUMMARY | 2018-11-10 12:45 | XMS REPORT | Clinical Summary ---
Author Author [facility] Organization [facility] Address Unknown Phone Unavailable Care Team Providers Care Marketing Copywriter Name Role Phone Gretchen Sinha MD PCP Allergies Comments Active Allergy Reactions Severity Noted Date Amoxicillin 06/18/2015 sprite Food Extracts 06/18/2015 Hydrocodone-Acetaminophen 06/18/2015 Medications End Date Status Medication Sig Dispensed Refills Start Date Active PROAIR HFA 90 INHALE 2 3 mcg/actuation inhaler PUFFS BY 6 MOUTH 3 TIMES A DAY Active glimepiride (AMARYL) 2 MG Take 2 mg by 1 tablet mouth 2 (two) 6 times a day. Active metFORMIN (GLUCOPHAGE) TAKE 2 1 500 MG tablet TABLETS BY 6 MOUTH TWICE A DAY DIRECTED Active ondansetron ODT DIS ONE T PO 0 (ZOFRAN-ODT) 4 MG BID UTD 6 disintegrating tablet Active pezetul-qbyyqsgiqcwle-ami Take 1 tablet 0 feine (EXCEDRIN MIGRAINE) by mouth 250-250-65 mg per tablet every 6 (six) hours as needed for headaches. Active Problems Not on file Family History Medical History Relation Name Comments Heart disease Father Diabetes Mother No Known Problems Sister Relation Name Status Comments Father Mother Sister Alive Social History Date Tobacco Use Types Packs/Day Years Used Quit: 02/22/1974 Former Smoker Comments: smoking on and off for 15-20 years Drinks/Week oz/Week Comments Alcohol Use No Sex Assigned at Date Recorded Not on file Industry Job Start Date Occupation Not on file Not on file Not on file Travel End Travel History Travel Start No recent travel history available. Last Filed Vital Signs Not on file Plan of Treatment Health Maintenance Due Date Last Done Comments CERVICAL CANCER SCREENING 1974 COLONOSCOPY SCREENING 2003 SHINGLES VACCINES (#1) 2003 BREAST CANCER SCREENING 06/25/2017 06/26/2015 65+ PNEUMOCOCCAL VACCINE 2018 (1 of 2 - PCV13) INFLUENZA VACCINE 09/22/2018 Results Not on fileafter 11/09/2017 Insurance Type Payer Benefit Subscriber ID Effective Phone Address Plan / Dates Group HMO CIG[employer] CIGJAMAR OPEN xxxxxxxxxxx 2015-P ACCESS/NET resent WORK Advance Directives For more information, please contact: [phone] Patient Head Of Data Explanation Type Date Recorded Advance Directives, Living Will and Medical Power of Pesticide Use Medical Coordinator
--- NOTE | 2018-11-10 13:50 | Diagnostic Imaging Report ---
Exams: Head and cervical spine CTs without IV contrast History: Trauma, fall Comparison studies: None Technique: Axial images were obtained from the brain and cervical spine. Coronal and sagittal images reconstructed from the axial data. Dose modulation, iterative reconstruction, and/or weight based adjustment of the mA/kV was utilized to reduce the radiation dose to as low as reasonably achievable. Intravenous contrast: None Findings: Head CT: Scalp: No abnormalities. Bones: No fractures, blastic or lytic lesions. Extra-axial spaces: No masses. No fluid collections. Brain sulci: Appropriate for age. Ventricles: Normal in size and configuration. No hydrocephalus. Parenchyma: No abnormal densities. No masses, acute hemorrhage, acute or chronic vascular insults. Sellar/suprasellar region: No abnormalities. Craniocervical junction: The foramen magnum is patent. No Chiari one malformation. Cervical spine CT: Fractures: None. Soft tissues: No gross acute abnormalities. Atlantoaxial articulation: Intact. Alignment: Straightened cervical curvature may be positional. No subluxations. Cervicomedullary junction: No abnormalities. The foramen magnum is patent. Vertebrae: No infection or neoplasm. Degenerative changes: Mildly degenerated disks from C4 to C7. Small disc osteophyte complexes at C5-C6 and at C6-C7 indent the thecal sac without significant canal stenosis. Mild multilevel facet arthrosis. Mild foraminal stenosis bilaterally at C5-C6 and on the right at C6-C7 due to uncovertebral arthrosis. Incidental findings: Torus mandibularis. Atherosclerotic calcifications in the carotid siphons. Chronic mucosal thickening with mucosal calcification in the floor the right maxillary sinus IMPRESSION: Head CT: No acute abnormalities. Cervical spine CT: 1. No cervical spine fracture or subluxation. 2. Mild degenerative changes as described. 3. Cannot exclude ligament, spinal cord and or vascular abnormalities on the basis of this examination. Signed by: Dr. Kj Pierce M.D. on 11/10/2018 1:47 PM
[2018-11-10 14:35] LABS: BASOPHILS # (AUTO) 0.1 (0.0-0.1); BASOPHILS % 0.6 % (0.0-1.0); EOSINOPHILS # (AUTO) 0.3 (0.0-0.4); EOSINOPHILS % 3.6 % (0.0-6.0); HEMATOCRIT 39.2 % (34.2-44.1); HEMOGLOBIN 12.8 g/dL (12.0-16.0); LYMPHOCYTES # (AUTO) 2.9 (1.0-3.2); LYMPHOCYTES % 34.2 % (18.0-39.1); MEAN CORPUSCULAR HEMOGLOBIN 28.6 pg (28-32); MEAN CORPUSCULAR HGB CONC 32.7 g/dL (31-35); MEAN CORPUSCULAR VOLUME 87.7 fL (81-99); MONOCYTES # (AUTO) 0.6 (0.2-0.8); MONOCYTES % 7.6 % (4.4-11.3); NEUTROPHILS # (AUTO) 4.5 (2.1-6.9); NEUTROPHILS % 53.8 % (38.7-80.0); PLATELET COUNT 270 x10e3/uL (140-360); RED BLOOD COUNT 4.47 x10e6/uL (3.6-5.1); RED CELL DISTRIBUTION WIDTH 13.1 % (11.7-14.4)
[2018-11-10 14:38] LABS: BILIRUBIN,URINE NEGATIVE (NEGATIVE); CLARITY,URINE CLEAR (CLEAR); COLOR,URINE YELLOW (YELLOW); KETONES,URINE NEGATIVE (NEGATIVE); LEUKOCYTE ESTERASE ,URINE NEGATIVE (NEGATIVE); NITRITE,URINE NEGATIVE (NEGATIVE); PROTEIN,URINE DIPSTICK NEGATIVE (NEGATIVE); URINE UROBILINOGEN 0.2 mg/dL (0.2 - 1)
[2018-11-10 14:45] LABS: EPITHELIAL CELLS,URINE FEW /LPF; WBC,URINE (MAN) 0-5 /HPF (0-5)
[2018-11-10 14:46] LABS: INR 0.9; PROTHROMBIN TIME 12.6 seconds (11.9-14.5)
[2018-11-10 14:47] LABS: PARTIAL THROMBOPLASTIN TIME 30.9 seconds (23.8-35.5)
[2018-11-10 14:56] LABS: ALANINE AMINOTRANSFERASE 18 IU/L (0-55); ALBUMIN 4.3 g/dL (3.5-5.0); ALKALINE PHOSPHATASE 89 IU/L (40-150); ANION GAP 14.7 mmol/L (8-16); BLOOD UREA NITROGEN 15 mg/dL (7-26); BUN/CREATININE RATIO 21 (6-25); CALCIUM 10.6 mg/dL (8.4-10.2); CARBON DIOXIDE 27 mmol/L (22-29); CHLORIDE 101 mmol/L (98-107); CREATINE KINASE 99 IU/L (29-168); CREATININE, SERUM 0.72 mg/dL (0.57-1.11); EST GLOMERULAR FILTRATION RATE > 60 ML/MIN (60-); GLUCOSE 99 mg/dL (74-118); POTASSIUM 3.7 mmol/L (3.5-5.1); SODIUM 139 mmol/L (136-145)
[2018-11-10] MEDS ORDERED: IBUPROFEN 600 MG TAB PO ONE (16:00)
--- NOTE | 2018-11-10 16:35 | Diagnostic Imaging Report ---
Chest, 1 view, 11/10/2018. History: Head injury. Comparison: None available. Findings: The cardiomediastinal silhouette and pulmonary vasculature are within normal limits for a portable exam. There is no focal consolidation or pleural effusion. There are no acute osseous or soft tissue abnormalities. Impression: No acute cardiopulmonary abnormality. Signed by: Jovani Maldonado on 11/10/2018 4:31 PM
[2018-11-10 16:38] VITALS: BP 147/73
== END 2018-11-10 16:40 | disposition home or self-care (01) ==
LOC: ER 12:41
DX: G44.211 Episodic tension-type headache, intractable (principal); W01.0XXA Fall on same level from slipping, tripping and stumbling without subsequent striking against object, initial encounter; Y92.008 Other place in unspecified non-institutional (private) residence as the place of occurrence of the external cause; E11.9 Type 2 diabetes mellitus without complications; J45.909 Unspecified asthma, uncomplicated
CPT/HCPCS: 36415; 70450; 71045; 72125; 80053; 81001; 82550; 82553; 83880; 84443; 84484; 85025; 85610; 85730; 87086; 93005; 99284

== ENCOUNTER → 2021-07-07 | Outpatient (CLI) | payer MEDICARE, OTHER ==
[~2021-07-07] MED LIST changes: +DIATRIZOATE MEGL/DIATRIZOA SOD 30 ML BTL PO ONE; +IOPAMIDOL 370 MG/ML 100 ML INFUS..BTL INJ ONE
[2021-07-07 08:17] LABS: CREATININE, SERUM 0.75 mg/dL (0.57-1.11)
== END ==
LOC: CT 07:24
PROVIDERS: ATTEND Family Medicine
DX: R10.9 Unspecified abdominal pain (principal); Z87.19 Personal history of other diseases of the digestive system
CPT/HCPCS: 36415; 74177; 82565; 84520; Q9967

== ENCOUNTER → 2024-03-16 | Outpatient (REF) | payer MEDICARE, OTHER ==
[~2024-03-16] MED LIST changes: -DIATRIZOATE MEGL/DIATRIZOA SOD 30 ML BTL PO ONE; -IOPAMIDOL 370 MG/ML 100 ML INFUS..BTL INJ ONE
== END ==
LOC: CT 13:54
PROVIDERS: ATTEND Family Medicine
DX: M25.561 Pain in right knee (principal); S89.91XA Unspecified injury of right lower leg, initial encounter; W19.XXXA Unspecified fall, initial encounter

== ENCOUNTER → 2024-12-13 | Outpatient (REF) | payer MEDICARE | LOC: CT 12:31 | PROVIDERS: ATTEND Family Medicine | DX: S09.90XA Unspecified injury of head, initial encounter (principal); W20.8XXA Other cause of strike by thrown, projected or falling object, initial encounter | CPT/HCPCS: 70450 ==